=== PATIENT | male | born 1965 | race Caucasian/White ===

== ENCOUNTER 2021-05-04 15:06 | Outpatient (CLI) | payer OTHER, SELFPAY ==
--- NOTE | ~2021-05-04 | CT_ITS ---
EXAMINATION: CT abdomen pelvis w con DATE: 05/04/2021 15:58 INDICATION: Lower abdominal pain TECHNIQUE: Computed tomography (CT) of the abdomen and pelvis was performed with 100 cc Omnipaque 350 intravenous contrast. Automated exposure control and iterative reconstruction technique were employe d. Exam dose: 585.61 mGy-cm total exam DLP. COMPARISON: 06/02/2018 CT abdomen pelvis FINDINGS: There is minimal atelectasis at the lung bases. Normal heart size. No pericardial or pleura l effusion. 4.2 cm and 9 mm inferior right hepatic cysts. The gallbladder is unremarkable. No bile duct or pancreatic duct dilatation. No pancreatic mass lesio n or calcification. Normal splenic size. Normal morphology of the adrenal glands. There are multiple bilateral nonobstructing kidney stones, numbering approximately 6 or 7 on the righ t and 3 on the left, ranging from punctate size to approximately 5.8 mm maximal dimension.. No ureter al calculus or hydroureteronephrosis. There is prominent prostate enlargement, impressing the base of the urinary bladder. There is moderat e diffuse bladder wall thickening. Small fat-containing umbilical hernia. Mild colonic diverticulosis; no CT evidence of diverticulitis. No bowel obstruction or intraperitonea l free air. No abdominal aortic aneurysm. No intraperitoneal or retroperitoneal or pelvic mass lesion or adenopat hy or ascites. Hemangiomas of T10 and T12. No suspicious osteolytic or osteoblastic lesions. IMPRESSION: Right hepatic cysts Bilateral nonobstructive nephrolithiasis Prominent prostatomegaly Mild colonic diverticulosis Reviewed, dictated and finalized at [facility]. Reviewed, dictated and finalized at [facility]. ING TECH
[2021-05-04 15:50] LABS: Estimated Glomerular Filt Rate > 60
== END 2021-05-04 15:07 | disposition home or self-care (01) ==
LOC: ANHIMG 15:13
PROVIDERS: PCP Family Medicine; Visit Provider Physician Assistant
DX: R10.30 Lower abdominal pain, unspecified (principal); K57.90 Diverticulosis of intestine, part unspecified, without perforation or abscess without bleeding; K76.89 Other specified diseases of liver; N20.0 Calculus of kidney; N40.0 Benign prostatic hyperplasia without lower urinary tract symptoms
CPT/HCPCS: 74177; Q9967

== ENCOUNTER 2021-07-26 14:26 | Emergency (ER) | payer OTHER, SELFPAY ==
--- NOTE | ~2021-07-26 | CT_ITS ---
EXAMINATION: CT abdomen pelvis wo con DATE: 07/26/2021 18:25 INDICATION: Kidney stones. Hematuria. Groin pain. TECHNIQUE: Computed tomography (CT) of the abdomen and pelvis was performed without intravenous contr ast. Automated exposure control and iterative reconstruction technique were employed. The dose-length product was 245.61 mGy-cm. COMPARISON: CT abdomen and pelvis 05/04/2021 FINDINGS: The visualized portions of the lung bases demonstrate mild atelectasis. No pleural effusion . The heart size is normal. No pericardial effusion. There are cysts in the liver measuring up to 4.6 cm. The gallbladder, spleen, pancreas, and adrenal glands are normal. There are approximately 8 ston es in right kidney measuring up to 4 mm. There is mild right hydronephrosis and hydroureter. There is a 4 mm stone in distal right ureter. There is high attenuation in right ureter and the bladder, cons istent with hemorrhage. There are 3 stones in left kidney measuring up to 7 mm. The prostate is mildl y enlarged. There is diverticulosis of the colon without evidence of diverticulitis. There are no dil ated loops of bowel. The appendix is not visualized. There are no pathologically enlarged lymph nodes . There is no free intraperitoneal fluid. There are hemangiomas in T10 and T12 vertebral bodies. Ther e is severe lumbar spondylosis. IMPRESSION: 1. 4 mm stone in distal right ureter with mild right hydronephrosis and hydroureter and hematuria. 2. Bilateral nonobstructing kidney stones. Reviewed, dictated and finalized at [facility]. IMPRESSION: 1. 4 mm stone in distal right ureter with mild right hydronephrosis and hydrour eter and hematuria. 2. Bilateral nonobstructing kidney stones.
[2021-07-26 14:28] VITALS: BP 145/74; PULSE 72; RESP 18; TEMP 36.4; O2SAT 98
[2021-07-26 14:45] LABS: Basophils Absolute Auto 0.1 K/mm3 (0.0-0.1); Basophils Percent Auto 0.9 % (0.2-1.2); Eosinophils Absolute Auto 0.4 K/mm3 (0-0.3); Hematocrit 45.1 % (42.0-52.0); Hemoglobin 14.2 g/dL (14.0-18.0); Immature Granulocyte Absolute 0.03 K/mm3 (0.00-0.031); Immature Granulocyte Percent A 0.3 % (0-0.5); Lymphocytes Absolute Auto 1.92 K/mm3 (0.9-3.2); Lymphocytes Percent Auto 20.6 % (18.3-44.2); Mean Corpuscular HGB Conc 31.5 g/dl (32-36); Mean Corpuscular Hemoglobin 29.7 pg (26-34); Mean Corpuscular Volume 94.4 fl (80-100); Mean Platelet Volume 11.8 fl (7.4-10.4); Monocytes Absolute Auto 0.6 K/mm3 (0.1-0.6); Monocytes Percent Auto 6.4 % (2.6-8.5); Neutrophils Absolute Auto 6.3 K/mm3 (1.3-6.7); Neutrophils Percent Auto 67.8 % (45.5-73.1); Platelet Count Result 234 k/mm3 (150-375); Red Blood Count 4.78 M/mm3 (4.6-6.20); Red Cell Distribution Width 12.6 % (11.5-14.5); White Blood Count 9.3 K/mm3 (4.5-10.0)
[2021-07-26 14:58] LABS: Appearance Urine Clear (Clear); Bilirubin Urine Negative (Negative); Blood Urine 2+ (Negative); Color Urine Yellow (Yellow); Glucose Urine UA Negative (Negative); Ketones Urine Negative (Negative); Leukocyte Esterase Ur Negative LEU/UL (Negative); Nitrate Urine Negative (Negative); Protein Urine Negative (Negative); Specific Grav Ur 1.015 (1.001-1.035); Urobilinogen Urine 0.2 mg/dL (<2.0); pH Urine 6.5 (5.0-9.0)
[2021-07-26 15:02] LABS: Bacteria Urine Trace /hpf; RBC Urine 21-50 /hpf (0-2); WBC Urine 0-3 /hpf
[2021-07-26 15:04] LABS: Add Urine Microscopic? YES
[2021-07-26 15:48] LABS: Alanine Aminotransferase 18 U/L (4-50); Albumin Level 4.4 g/dL (3.5-5.1); Alkaline Phosphatase 65 U/L (38-126); Anion Gap 9 mmol/L (8-16); Aspartate Amino Transferase 27 U/L (17-59); Bilirubin,Total 0.6 mg/dL (0.2-1.3); Blood Urea Nitrogen 19 mg/dL (9-20); Calcium 8.7 mg/dL (8.4-10.2); Carbon Dioxide 26 mmol/L (22-30); Chloride 104 mmol/L (98-107); Estimated CRCL calculation 60 ml/min; Estimated Glomerular Filt Rate > 60; Glucose 153 mg/dL (65-110); Potassium 4.4 mmol/L (3.4-5.0); Sodium 139 mmol/L (137-145)
[2021-07-26 17:27] VITALS: BP 133/96; PULSE 71; RESP 18; O2SAT 98
--- NOTE | 2021-07-26 17:35 | ED.ABDPAIN ---
HPI - Abdominal Pain General Chief Complaint: Abdominal Pain Stated Complaint: right lower abd pain/hx stones Time Seen by Provider: 07/26/21 17:23 History of Present Illness HPI narrative: 55-year-old male with a history of kidney stones here for evaluation of right groin pain for the past 3 days. Patient states the pain is severe in nature, is colicky, and is very similar to previous kidney stone flare-ups. He has tried tramadol without much relief. Last flareup was several years ago , and was treated with shockwave lithotripsy. Patient was sent from [facility] [place], where he was getting a prostate MRI for prostatomegaly. Told to come to ED due to his pain and symptoms. Denies fevers, chills, back pain, dysuria, obstructive voiding symptoms. Related Data Allergies Allergy/AdvReac Type Severity Reaction Status Date / Time morphine AdvReac Unknown Verified 07/26/21 14:31 Review of Systems Review of Systems: Gen: Denies fevers or chills Eyes: Denies eye pain or visual change ENT: Denies congestion Respiratory: Denies shortness of breath or cough CV: Denies chest pain or palpitations GI: Denies abdominal pain nausea, emesis or diarrhea : Reports right groin pain and hematuria. Denies burning, urgency, frequency Musculoskeletal: Denies back pain or muscle pain Neuro: Denies numbness, tingling, weakness or focal weakness Skin: Denies rash Except as documented, all other systems reviewed and negative All systems reviewed & are unremarkable except as noted in HPI and below [facility] Surgical History Surgical History H/O vasectomy History of appendectomy Family History Family History Sibling Hypertension Social History Social History Smoking status: Never smoker Smoking end date: 03/24/83 Alcohol intake: current Exam Narrative: APPEARANCE: Uncomfortable appearing. Head: normocephalic and atraumatic. EYES: PERRLA/EOMI, conjunctivae clear NOSE: No nasal drainage EARS: External ear normal in appearance THROAT: Oropharynx is clear. Mucous membranes are moist. NECK: Supple. No adenopathy, no masses. RESPIRATORY: Airway patent, respirations nonlabored. Clear to auscultation bilaterally, no rales, rhonchi, wheezing. CARDIOVASCULAR: Regular rate and rhythm without murmurs, rubs, or gallops. ABDOMINAL: Normoactive bowel sounds. Soft, nontender, nondistended. No rebound tenderness or guarding. MUSCULOSKELETAL: Extremities are warm and well-perfused. Moves all extremities well. No edema. NEURO: Normal speech. No focal neurologic deficits. SKIN: Skin is warm and dry. No rashes. PSYCHIATRIC: Normal affect/mood. Course Vital Signs Vital signs: Vital Signs Temperature 97.6 F 07/26/21 14:28 Pulse Rate 72 07/26/21 14:28 Respiratory Rate 18 07/26/21 14:28 Blood Pressure 145/74 H 07/26/21 14:28 Pulse Oximetry 98 07/26/21 14:28 Temperature 97.6 F 07/26/21 14:28 Pulse Rate 68 07/26/21 18:57 Respiratory Rate 15 07/26/21 18:57 Blood Pressure 133/96 H 07/26/21 17:27 Pulse Oximetry 98 07/26/21 18:57 MDM - Abdominal Pain MDM Narrative Medical decision making narrative: 55-year-old male with a history of kidney stone here for intermittent right groin pain and hematuria for the past 3 days. Vital signs stable, labs unremarkable. CT with evidence of a 4 mm distal ureteral stone on the right. Spoke with [facility] [place], who agreed with plan for outpatient follow-up. Patient's pain is entirely resolved after Toradol, and feels okay to go home. He will strain his urine to look for the stone. Lab Data Result diagrams: 07/26/21 14:31 07/26/21 14:31 Labs: Lab Results 07/26/21 07/26/21 07/26/21 Range/Units 14:31 14:31 14:35 WBC 9.3 (4.5-10.0) K/mm3 RBC 4.78 (
[2021-07-26] MEDS: KETOROLAC 15 MG/ML VIAL (*BKC) IV PUSH (17:37)
[2021-07-26 18:57] VITALS: PULSE 68; RESP 15; O2SAT 98
== END 2021-07-26 19:09 | disposition home or self-care (01) ==
PROVIDERS: Emergency Medicine; Emergency Provider Emergency Medicine; PCP Family Medicine
DX: N13.2 Hydronephrosis with renal and ureteral calculous obstruction (principal); Z87.442 Personal history of urinary calculi
CPT/HCPCS: 36415; 74176; 80053; 81001; 85025; 96374; 99284; J1885

== ENCOUNTER 2022-02-02 11:50 | Emergency (ER) | payer OTHER, SELFPAY ==
[2022-02-02 12:06] VITALS: BP 118/73; PULSE 84; RESP 18; TEMP 36.6; O2SAT 98
--- NOTE | 2022-02-02 19:34 | ED.GENADULT ---
HPI - General Adult General Chief complaint: Upper Respiratory Infection Stated complaint: cough,congestion History of Present Illness HPI narrative: 56 y/o male. PMHx Asthma. Presents to [facility] today with acute complaints of cough, intermittent wheezing, and congestion for the past 1 week. He reports to have had a dry, non-productive cough, also causing his throat to become 'raw'. Intermittent wheezing, has been using home inhalers with some reliefs. He notes having to use his inhalers a bit more often in the past week 2/2 acute illness. -No fever. -Denies chest pain, palpitations, edema, hemoptysis. No known ill contacts. Related Data Home Medications Medication Instructions Recorded Confirmed mometasone 110 mcg/actuation(30 1 inh inhalation DIRECTED 02/02/22 02/02/22 doses) breath activated powder inhaler (Asmanex Twisthaler) Allergies Allergy/AdvReac Type Severity Reaction Status Date / Time morphine AdvReac Unknown Verified 02/02/22 12:21 Review of Systems Review of Systems: CONSTITUTIONAL: Denies fever, chills, sweats. EYES: Denies visual changes, redness, discharge. ENT: +rhinorrhea, congestion. 'Raw' throat. No otalgia. CARDIOVASCULAR: Denies chest pain, palpitations, edema. RESPIRATORY: Denies dyspnea. + wheezing & cough. GASTROINTESTINAL: Denies abdominal pain, nausea, vomiting, diarrhea. GENITOURINARY: Denies dysuria, hematuria, abnormal discharge SKIN: Denies rash or itching. MUSCULOSKELETAL: Denies acute back pain, joint pain, or myalgia. NEUROLOGIC: Denies numbness, or focal weakness. PSYCHIATRIC: Denies anxiety or depression. PMFSH Surgical History Surgical History H/O vasectomy History of appendectomy Family History Family History Sibling Hypertension Social History Social History Smoking status: Never smoker Smoking end date: 03/24/83 Alcohol intake: current Exam Narrative: GENERAL: This is a well-nourished, well-developed adult, in no apparent distress. HEAD: normocephalic. EYES: Sclera clear/white. EARS: External ears normal, auditory canals clear and without drainage, TMs normal. NOSE: External nose normal. Positive Rhinorrhea, no obstruction, nares patent. THROAT: Mucous membranes moist, posterior pharynx is erythematous, No exudates. NECK: Neck supple, non-tender without lymphadenopathy, masses or thyromegaly. CARDIOVASCULAR: Regular rate and rhythm without murmurs, gallops, or rubs. RESPIRATORY: Upper airway Rhonchi, cleared w/cough. Breath sounds equal bilaterally. No wheezes or rales. GASTROINTESTINAL: Abdomen soft, non-tender, nondistended. Bowel sounds are active. No guarding. SKIN: warm, intact with no suspicious lesions or rash, good texture and turgor. NEURO: Alert, active, and age appropriate. No focal neurologic deficits. EXTREMITIES: Negative. Course Course Level of Care: Express Care Visit Vital Signs Vital signs: Vital Signs Temperature 36.6 C 02/02/22 12:06 Pulse Rate 84 02/02/22 12:06 Respiratory Rate 18 02/02/22 12:06 Blood Pressure 118/73 02/02/22 12:06 Pulse Oximetry 98 02/02/22 12:06 Oxygen Delivery Room Air 02/02/22 12:06 Temperature 36.6 C 02/02/22 12:06 Pulse Rate 84 02/02/22 12:06 Respiratory Rate 18 02/02/22 12:06 Blood Pressure 118/73 02/02/22 12:06 Pulse Oximetry 98 02/02/22 12:06 Oxygen Delivery Room Air 02/02/22 12:06 Medical Decision Making [facility] Narrative Medical decision making narrative: -Suspect Intermittent, Mild, Asthma w/Exacerbation/URI. -No hypoxemia, no respiratory distress. -Appears generally non-toxic. -OP ATB/Steroid/Tessalon as directed. -Resume home antihistamine and inhalers as directed. -May resume additional OTC remedies prn for other symptomatic reliefs.
== END 2022-02-02 12:45 | disposition home or self-care (01) ==
PROVIDERS: Emergency Provider Nurse Practitioner Adult Health; PCP Family Medicine
DX: J06.9 Acute upper respiratory infection, unspecified (principal); J45.21 Mild intermittent asthma with (acute) exacerbation; Z98.52 Vasectomy status; Z87.891 Personal history of nicotine dependence
CPT/HCPCS: 99213; G0463

== ENCOUNTER 2022-10-12 13:57 | Emergency (ER) | payer OTHER, SELFPAY ==
[2022-10-12] VITALS (10 sets, daily range): BP systolic 134–154; BP diastolic 87–93; PULSE 82; RESP 16; TEMP 36.4; O2SAT 94–97
[2022-10-12] MEDS: IBUPROFEN 400 MG TABLET 800 MG PO (14:39)
--- NOTE | 2022-10-12 15:10 | PC.NURSE ---
ERP ordered for triple antibiotic, Xeroform dressing, and to wrap open blisters to pt's right arm and lower leg. RN performs actions. PMS is present distal to the wrappings. Educated pt wound care at home.
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
== END 2022-10-12 15:31 | disposition home or self-care (01) ==
PROVIDERS: Emergency Provider Nurse Practitioner Family; PCP Family Medicine
DX: T22.211A Burn of second degree of right forearm, initial encounter (principal); T24.201A Burn of second degree of unspecified site of right lower limb, except ankle and foot, initial encounter; T31.0 Burns involving less than 10% of body surface; X08.8XXA Exposure to other specified smoke, fire and flames, initial encounter
CPT/HCPCS: 99283; A9270

== ENCOUNTER 2023-04-29 10:41 | Outpatient (CLI) | payer OTHER, SELFPAY ==
[2023-04-29 11:00] LABS: Basophils Absolute Auto 0.1 K/mm3 (0.0-0.1); Basophils Percent Auto 0.6 % (0.2-1.2); Eosinophils Absolute Auto 0.2 K/mm3 (0-0.3); Eosinophils Percent Auto 2.5 % (0-4.4); Hematocrit 34.8 % (42.0-52.0); Hemoglobin 10.8 g/dL (14.0-18.0); Immature Granulocyte Absolute 0.03 K/mm3 (0.00-0.031); Immature Granulocyte Percent A 0.4 % (0-0.5); Lymphocytes Absolute Auto 2.87 K/mm3 (0.9-3.2); Lymphocytes Percent Auto 35.7 % (18.3-44.2); Mean Corpuscular Hemoglobin 28.3 pg (26-34); Mean Corpuscular Volume 91.3 fl (80-100); Mean Platelet Volume 11.4 fl (7.4-10.4); Monocytes Absolute Auto 0.5 K/mm3 (0.1-0.6); Monocytes Percent Auto 6.5 % (2.6-8.5); Neutrophils Absolute Auto 4.4 K/mm3 (1.3-6.7); Neutrophils Percent Auto 54.3 % (45.5-73.1); Platelet Count Result 308 k/mm3 (150-375); Red Blood Count 3.81 M/mm3 (4.6-6.20)
[2023-04-29 11:15] LABS: Alanine Aminotransferase 20 U/L (6-50); Albumin Level 4.2 g/dL (3.5-5.1); Alkaline Phosphatase 69 U/L (38-126); Anion Gap 5 mmol/L (8-16); Aspartate Amino Transferase 32 U/L (17-59); Bilirubin,Total 0.6 mg/dL (0.2-1.3); Blood Urea Nitrogen 18 mg/dL (9-20); Calcium 9.3 mg/dL (8.4-10.2); Carbon Dioxide 30 mmol/L (22-30); Chloride 102 mmol/L (98-107); Estimated Glomerular Filt Rate > 60; Glucose 107 mg/dL (65-110); Sodium 137 mmol/L (137-145)
== END 2023-04-29 10:42 | disposition home or self-care (01) ==
LOC: ANHLAB 10:43
PROVIDERS: PCP Family Medicine; Visit Provider Family Medicine
DX: R55 Syncope and collapse (principal)
CPT/HCPCS: 36415; 80053; 85025

== ENCOUNTER 2023-05-02 08:05 | Outpatient (CLI) | payer OTHER, SELFPAY ==
[2023-05-02 08:23] LABS: Basophils Absolute Auto 0.1 K/mm3 (0.0-0.1); Eosinophils Absolute Auto 0.4 K/mm3 (0-0.3); Eosinophils Percent Auto 6.5 % (0-4.4); Hematocrit 31.6 % (42.0-52.0); Immature Granulocyte Absolute 0.03 K/mm3 (0.00-0.031); Immature Granulocyte Percent A 0.5 % (0-0.5); Lymphocytes Percent Auto 40.1 % (18.3-44.2); Mean Corpuscular HGB Conc 31.6 g/dl (32-36); Mean Corpuscular Hemoglobin 28.7 pg (26-34); Mean Corpuscular Volume 90.8 fl (80-100); Mean Platelet Volume 10.8 fl (7.4-10.4); Monocytes Absolute Auto 0.4 K/mm3 (0.1-0.6); Monocytes Percent Auto 6.5 % (2.6-8.5); Neutrophils Absolute Auto 2.7 K/mm3 (1.3-6.7); Neutrophils Percent Auto 45.4 % (45.5-73.1); Platelet Count Result 308 k/mm3 (150-375); Red Blood Count 3.48 M/mm3 (4.6-6.20)
[2023-05-02 08:53] LABS: Alanine Aminotransferase 17 U/L (6-50); Albumin Level 3.9 g/dL (3.5-5.1); Alkaline Phosphatase 66 U/L (38-126); Anion Gap 7 mmol/L (8-16); Aspartate Amino Transferase 27 U/L (17-59); Bilirubin,Total 0.6 mg/dL (0.2-1.3); Blood Urea Nitrogen 19 mg/dL (9-20); Calcium 8.7 mg/dL (8.4-10.2); Carbon Dioxide 27 mmol/L (22-30); Chloride 104 mmol/L (98-107); Cholesterol 192 mg/dL (0-200); Estimated Glomerular Filt Rate > 60; Glucose 98 mg/dL (65-110); HDL Direct 54 mg/dL; Potassium 4.1 mmol/L (3.4-5.0); Sodium 138 mmol/L (137-145); Triglycerides 82 mg/dL (<150)
[2023-05-02 08:58] LABS: Iron 27 ug/dL (49-181)
[2023-05-02 09:04] LABS: LDL Cholesterol Direct 108 mg/dL
[2023-05-02 09:08] LABS: Percent Iron Saturation 6 % (20-50)
[2023-05-02 09:19] LABS: Prostate Specific Antigen 8.3 ng/mL (< OR = 4.0)
[2023-05-02 09:35] LABS: Ferritin 9.39 ng/mL (11.1-264)
== END 2023-05-02 08:06 | disposition home or self-care (01) ==
LOC: ANHLAB 08:06
PROVIDERS: Physician Assistant; PCP Family Medicine; Visit Provider Family Medicine
DX: D64.9 Anemia, unspecified (principal); N40.0 Benign prostatic hyperplasia without lower urinary tract symptoms; Z00.00 Encounter for general adult medical examination without abnormal findings; I10 Essential (primary) hypertension
CPT/HCPCS: 36415; 80053; 80061; 82728; 83540; 83550; 84153; 84443; 85025

== ENCOUNTER 2023-05-27 07:18 | Outpatient (CLI) | payer OTHER, SELFPAY ==
[2023-05-27 08:30] LABS: Prostate Specific Antigen 8.2 ng/mL (< OR = 4.0)
== END 2023-05-27 07:19 | disposition home or self-care (01) ==
LOC: ANHLAB 07:20
PROVIDERS: PCP Family Medicine; Visit Provider Urology
DX: R97.20 Elevated prostate specific antigen [PSA] (principal)
CPT/HCPCS: 36415; 84153

== ENCOUNTER 2023-05-28 00:11 | Day surgery (SDC) | payer OTHER, SELFPAY ==
[2023-05-12 13:40] VITALS: BMI 28.1
--- NOTE | 2023-05-26 10:08 | SUR.PREOP ---
Patient called regarding upcoming procedure. Reviewed preop instructions, appointment times, and procedure prep.
[2023-05-28 12:59] VITALS: BP 156/93; PULSE 73; RESP 18; TEMP 36.2; O2SAT 98
[2023-05-28] MEDS: LACTATED RINGERS 1,000 ML 150 ML IV CONT (13:01)
--- NOTE | 2023-05-28 13:18 | P.PNAN_ITS ---
Anes - Initial Pre Proc Eval Procedure: Operation Date: 05/28/23 14:00 Proposed Procedures p Esophagogastroduodenoscopy & Colonoscopy - Michoacano Prescott MD Date/Time: 05/28/23 13:18 Surgeon: Michoacano Prescott MD Pre Op Diagnosis: anemia Patient Data Age: 57 Gender: M Height: 1.73 m Weight: 80 kg Last Vital Signs Temp 97.2 F L 05/28/23 12:59 Pulse 73 05/28/23 12:59 Resp 18 05/28/23 12:59 BP 156/93 H 05/28/23 12:59 Pulse Ox 98 05/28/23 12:59 O2 Del Method Room Air 05/28/23 12:59 Allergies Allergy/AdvReac Type Severity Reaction Status Date / Time morphine AdvReac Unknown Verified 05/28/23 12:58 Home Medications Medication Instructions Recorded Confirmed Type albuterol sulfate 90 mcg/actuation 1 inh inhalation Q4H PRN shortness 07/16/22 05/28/23 Rx aerosol inhaler of breath or wheezing #6.7 grams ibuprofen 800 mg tablet 800 mg PO Q8H PRN pain #90 tabs 10/12/22 05/28/23 Rx fluticasone 250 mcg-salmeterol 50 See Rx Instructions .Route 10/28/22 05/28/23 Rx mcg/dose blistr powdr for .COMPLEX #180 ea inhalation lisinopril 10 mg tablet 10 mg PO DAILY #90 tabs 11/26/22 05/28/23 Rx Patient hx anesthesia problems: none Family hx anesthesia problems: none Results Review: All pre-operative results and documents have been reviewed as part of the pre- operative evaluation. [facility] Surgical History Surgical History H/O vasectomy History of appendectomy Family History Family History Sibling Hypertension Social History Social History Smoking status: Former smoker Tobacco type: cigarettes Smoking end date: 03/24/83 Additional smoking assessment comments: 2cigs per week Alcohol intake: current Drinks per week: 1 Substance use: never Living arrangements: with family Occupation/Education: occupation Gender identity (if verbalized by the patient): Male Spiritual care concerns: No Anes - Eval Final PreProcedure Day of Procedure 05/28/23 13:18 Patient weight: normal Heart: regular rate and rhythm Lungs: clear to auscultation Airway: Mallampati scale class II Neurological: alert and oriented Last oral intake: >/= 8 hours ASA classification: II Emergent: no Anesthetic plan: proceed Anesthesia type and monitoring: general GIVS and standard monitoring Results Review: All pre-operative results and documents have been reviewed as part of the pre- operative evaluation. Informed Consent: The patient's anesthetic plan and its attendant risks and benefits were discussed with the patient/family/POA. Questions were solicited and answers provided to the satisfaction of the patient/family/POA.
--- NOTE | 2023-05-28 13:34 | PM.HPGS ---
History of Present Illness History of Present Illness Consent: Risks, benefits, and alternatives have been discussed and questions answered. Patient agrees to proceed with procedure. Chief complaint: anemia Narrative: Al Powell is a 57 year old male here for egd and colonoscopy, had anemia hgb ~ 10 but denies overt gib however about 2 months ago had episode of black stool, he is not taking ppi. He uses nsaid's as needed. Review of Systems Constitutional: Constitutional: Denies headache(s) and Denies weakness Eyes: Eyes: Denies blurry vision ENT: Reports Normal hearing present, Denies headache(s) and Denies neck pain Cardiovascular: Cardiovascular: Denies chest pain and Denies dyspnea Respiratory: Respiratory: Denies dyspnea Gastrointestinal: Gastrointestinal: Reports no additional gastrointestinal complaints Genitourinary: Genitourinary: Denies dysuria Musculoskeletal: Musculoskeletal: Denies neck pain Integumentary/Breasts: Skin/Breast: Denies dry skin Neurologic: Reports Normal hearing present, Denies headache(s) and Denies weakness Psychiatric: Psychiatric: Denies anxiety Endocrine: Endocrine: Denies change in body appearance Hematologic/Lymphatic: Hematologic/Lymphatic: Denies easy bleeding Allergic/Immunologic: Allergic/Immunologic: Denies urticaria PMFSH Past Medical History Medical History (Updated 05/28/23 @ 13:35 by Michoacano Prescott MD) Anemia Surgical History Surgical History H/O vasectomy History of appendectomy Family History Family History Sibling Hypertension Social History Social History Smoking status: Former smoker Tobacco type: cigarettes Smoking end date: 03/24/83 Additional smoking assessment comments: 2cigs per week Alcohol intake: current Drinks per week: 1 Substance use: never Living arrangements: with family Occupation/Education: occupation Gender identity (if verbalized by the patient): Male Spiritual care concerns: No Meds Home Medications and Allergies Home Medications Medication Instructions Recorded Confirmed Type albuterol sulfate 90 mcg/actuation 1 inh inhalation Q4H PRN shortness 07/16/22 05/28/23 Rx aerosol inhaler of breath or wheezing #6.7 grams ibuprofen 800 mg tablet 800 mg PO Q8H PRN pain #90 tabs 10/12/22 05/28/23 Rx fluticasone 250 mcg-salmeterol 50 See Rx Instructions .Route 10/28/22 05/28/23 Rx mcg/dose blistr powdr for .COMPLEX #180 ea inhalation lisinopril 10 mg tablet 10 mg PO DAILY #90 tabs 11/26/22 05/28/23 Rx Allergies Allergy/AdvReac Type Severity Reaction Status Date / Time morphine AdvReac Unknown Verified 05/28/23 12:58 Vital Signs Vital Signs - 24 hr 05/28/23 12:59 Temperature 97.2 F L Pulse Rate 73 Respiratory Rate 18 Blood Pressure 156/93 H Pulse Oximetry 98 Oxygen Delivery Room Air Exam Const: General: comfortable and no acute distress HENMT: Face/Nose/Sinus: Normal nares present Eyes: General: appearance normal, both eyes and all related structures Neck: Neck: no JVD Resp: Auscultation: clear to auscultation bilaterally Cardio: Rate: regular rate Rhythm: regular rhythm GI: Inspection: non-distended GI Palp: Yes Soft to palpation Skin: General skin exam: normal color Neuro: General: gait normal Speech: normal speech Extrem: General: normal to inspection Psych: Mental Status: mental status grossly normal Assessment and Plan Assessment and plan (1) Anemia: Code(s): D64.9 - Anemia, unspecified Status: Acute Assessment and Plan: egd and colonoscopy
--- NOTE | 2023-05-28 13:48 | SUR.OPER ---
egd ended at 1346 and colon at 1351
[2023-05-28 14:00] VITALS: BP 118/73; PULSE 63; RESP 18; O2SAT 98
== END 2023-05-28 14:45 | disposition home or self-care (01) ==
PROVIDERS: PCP Family Medicine; Visit Provider Internal Medicine Gastroenterology
PROC: 0DJ08ZZ Inspection of Upper Intestinal Tract, Via Natural or Artificial Opening Endoscopic (ICD-10-PCS; CPT 43235; principal; 2023-05-28 14:00)
DX: K25.9 Gastric ulcer, unspecified as acute or chronic, without hemorrhage or perforation (principal); K29.50 Unspecified chronic gastritis without bleeding; B96.81 Helicobacter pylori [H. pylori] as the cause of diseases classified elsewhere; D64.9 Anemia, unspecified; K57.30 Diverticulosis of large intestine without perforation or abscess without bleeding; K64.8 Other hemorrhoids; Z87.891 Personal history of nicotine dependence; Z79.51 Long term (current) use of inhaled steroids
CPT/HCPCS: 45378; 43239; 88305; 88342; J2001; J2704; J7120

== ENCOUNTER 2023-08-27 16:50 | Outpatient (CLI) | payer OTHER, SELFPAY ==
[2023-08-27 18:00] LABS: Hematocrit 35.7 % (42.0-52.0); Hemoglobin 10.3 g/dL (14.0-18.0); Mean Corpuscular HGB Conc 28.9 g/dl (32-36); Mean Corpuscular Hemoglobin 22.3 pg (26-34); Mean Corpuscular Volume 77.3 fl (80-100); Mean Platelet Volume 11.4 fl (7.4-10.4); Platelet Count Result 304 k/mm3 (150-375); Red Blood Count 4.62 M/mm3 (4.6-6.20); Red Cell Distribution Width 19.9 % (11.5-14.5)
[2023-08-27 18:14] LABS: Alanine Aminotransferase 25 U/L (6-50); Albumin Level 4.6 g/dL (3.5-5.1); Alkaline Phosphatase 65 U/L (38-126); Anion Gap 7 mmol/L (4-12); Aspartate Amino Transferase 29 U/L (17-59); Bilirubin,Total 0.7 mg/dL (0.2-1.3); Blood Urea Nitrogen 23 mg/dL (9-20); Carbon Dioxide 24 mmol/L (22-30); Chloride 107 mmol/L (98-107); Estimated Glomerular Filt Rate > 60; Glucose 96 mg/dL (65-110); Potassium 3.9 mmol/L (3.4-5.0); Sodium 138 mmol/L (137-145)
== END 2023-08-27 16:51 | disposition home or self-care (01) ==
LOC: ANHIMG 16:51
PROVIDERS: PCP Family Medicine; Visit Provider Physician Assistant Medical
DX: K29.70 Gastritis, unspecified, without bleeding (principal); I10 Essential (primary) hypertension; D64.9 Anemia, unspecified; B96.81 Helicobacter pylori [H. pylori] as the cause of diseases classified elsewhere; M25.562 Pain in left knee; M25.561 Pain in right knee
CPT/HCPCS: 36415; 73562; 80053; 85027

== ENCOUNTER 2023-09-26 00:07 | Day surgery (SDC) | payer OTHER, SELFPAY ==
[2023-09-10 14:09] VITALS: BMI 27.4
[2023-09-26 08:06] VITALS: BP 141/85; PULSE 71; RESP 17; TEMP 36.3; O2SAT 96; BMI 29.0
--- NOTE | 2023-09-26 08:12 | WPDANESEPPF ---
Anes - Initial Pre Proc Eval Procedure: Operation Date: 09/26/23 09:30 Proposed Procedures p Esophagogastroduodenoscopy - Michoacano Prescott MD Date/Time: 09/26/23 08:12 Surgeon: Michoacano Prescott MD Pre Op Diagnosis: gastric ulcer Patient Data Age: 57 Gender: M Height: 1.73 m Weight: 86.7 kg Last Vital Signs Temp 97.3 F L 09/26/23 08:06 Pulse 71 09/26/23 08:06 Resp 17 09/26/23 08:06 BP 141/85 H 09/26/23 08:06 Pulse Ox 96 09/26/23 08:06 O2 Del Method Room Air 09/26/23 08:06 Allergies Allergy/AdvReac Type Severity Reaction Status Date / Time morphine AdvReac Unknown Verified 09/26/23 08:04 Home Medications Medication Instructions Recorded Confirmed Type albuterol sulfate 90 mcg/actuation 1 inh inhalation Q4H PRN shortness 07/16/22 09/26/23 Rx aerosol inhaler of breath or wheezing #6.7 grams omeprazole 40 mg capsule,delayed 40 mg PO .daily #30 caps 05/28/23 09/26/23 Rx release lisinopril 10 mg tablet 10 mg PO DAILY #90 tabs 07/09/23 09/26/23 Rx fluticasone 250 mcg-salmeterol 50 See Rx Instructions .Route .COMPLEX 09/10/23 09/26/23 History mcg/dose blistr powdr for inhalation (Advair Diskus) Patient hx anesthesia problems: none Family hx anesthesia problems: none Results Review: All pre-operative results and documents have been reviewed as part of the pre-operative evaluation. [facility] Past Medical History Medical History Anemia Helicobacter positive gastritis Surgical History Surgical History H/O vasectomy History of appendectomy Family History Family History Sibling Hypertension Social History Social History Smoking status: Former smoker Tobacco type: cigarettes Smoking end date: 03/24/83 Additional smoking assessment comments: 2cigs per week Alcohol intake: current Drinks per week: 1 Substance use: never Living arrangements: with family Occupation/Education: occupation Gender identity (if verbalized by the patient): Male Spiritual care concerns: No Anes - Eval Final PreProcedure Day of Procedure 09/26/23 08:12 Patient weight: normal Heart: regular rate and rhythm Lungs: clear to auscultation Airway: Mallampati scale class II Neurological: alert and oriented Last oral intake: >/= 8 hours ASA classification: II Emergent: no Anesthetic plan: proceed Anesthesia type and monitoring: general GIVS and standard monitoring Results Review: All pre-operative results and documents have been reviewed as part of the pre-operative evaluation. Informed Consent: The patient's anesthetic plan and its attendant risks and benefits were discussed with the patient/family/POA. Questions were solicited and answers provided to the satisfaction of the patient/family/POA.
[2023-09-26] MEDS: LACTATED RINGERS 1,000 ML 150 ML IV CONT (08:13)
--- NOTE | 2023-09-26 08:57 | PM.HPGS ---
History of Present Illness History of Present Illness Consent: Risks, benefits, and alternatives have been discussed and questions answered. Patient agrees to proceed with procedure. Chief complaint: gastric ulcer Narrative: Al Powell is a 57 year old male with gastric ulcer after had anemia, now asymptomatic after using ppi and not longer using nsaid's Review of Systems Review of Systems: All systems reviewed & are unremarkable except as noted in HPI and below PMFSH Past Medical History Medical History Anemia Helicobacter positive gastritis Surgical History Surgical History H/O vasectomy History of appendectomy Family History Family History Sibling Hypertension Social History Social History Smoking status: Former smoker Tobacco type: cigarettes Smoking end date: 03/24/83 Additional smoking assessment comments: 2cigs per week Alcohol intake: current Drinks per week: 1 Substance use: never Living arrangements: with family Occupation/Education: occupation Gender identity (if verbalized by the patient): Male Spiritual care concerns: No Meds Home Medications and Allergies Home Medications Medication Instructions Recorded Confirmed Type albuterol sulfate 90 mcg/actuation 1 inh inhalation Q4H PRN shortness 07/16/22 09/26/23 Rx aerosol inhaler of breath or wheezing #6.7 grams omeprazole 40 mg capsule,delayed 40 mg PO .daily #30 caps 05/28/23 09/26/23 Rx release lisinopril 10 mg tablet 10 mg PO DAILY #90 tabs 07/09/23 09/26/23 Rx fluticasone 250 mcg-salmeterol 50 See Rx Instructions .Route .COMPLEX 09/10/23 09/26/23 History mcg/dose blistr powdr for inhalation (Advair Diskus) Allergies Allergy/AdvReac Type Severity Reaction Status Date / Time morphine AdvReac Unknown Verified 09/26/23 08:04 Vital Signs Vital Signs - 24 hr 09/26/23 08:06 Temperature 97.3 F L Pulse Rate 71 Respiratory Rate 17 Blood Pressure 141/85 H Pulse Oximetry 96 Oxygen Delivery Room Air Exam Const: General: comfortable and no acute distress HENMT: Face/Nose/Sinus: Normal nares present Eyes: General: appearance normal, both eyes and all related structures Neck: Neck: no JVD Resp: Auscultation: clear to auscultation bilaterally Cardio: Rate: regular rate Rhythm: regular rhythm GI: Inspection: non-distended GI Palp: Yes Soft to palpation Skin: General skin exam: normal color Neuro: General: gait normal Speech: normal speech Extrem: General: normal to inspection Psych: Mental Status: mental status grossly normal Assessment and Plan Assessment and plan (1) Helicobacter positive gastritis: Code(s): K29.70 - Gastritis, unspecified, without bleeding; B96.81 - Helicobacter pylori [H. pylori] as the cause of diseases classified elsewhere Status: Acute Assessment and Plan: egd to assess healing
[2023-09-26 09:05] VITALS: BP 120/68; PULSE 62; RESP 22; O2SAT 98
[2023-09-26 09:15] VITALS: BP 116/69; PULSE 63; RESP 21; O2SAT 98
[2023-09-26 09:25] VITALS: BP 133/70; PULSE 60; RESP 21; O2SAT 98
== END 2023-09-26 09:35 | disposition home or self-care (01) ==
PROVIDERS: PCP Family Medicine; Visit Provider Internal Medicine Gastroenterology
PROC: 0DJ08ZZ Inspection of Upper Intestinal Tract, Via Natural or Artificial Opening Endoscopic (ICD-10-PCS; CPT 43235; principal; 2023-09-26 09:30)
DX: K25.9 Gastric ulcer, unspecified as acute or chronic, without hemorrhage or perforation (principal); K29.50 Unspecified chronic gastritis without bleeding; K44.9 Diaphragmatic hernia without obstruction or gangrene; B96.81 Helicobacter pylori [H. pylori] as the cause of diseases classified elsewhere; Z87.891 Personal history of nicotine dependence
CPT/HCPCS: 43239; 88305; 88342; J2704; J7120

== ENCOUNTER 2024-01-11 12:26 | Outpatient (CLI) | payer OTHER, SELFPAY ==
--- NOTE | ~2024-01-11 | MR_ITS ---
MRI of the right knee Clinical history: Pain Technique: Coronal proton density and proton density-weighted images, sagittal proton-density and T2 fat-sat images, and axial proton-density fat-saturated images were acquired. Findings: Anterior and posterior cruciate ligaments are intact. Medial collateral ligament and the la teral collateral ligament complex are intact. Popliteus tendon is intact. Medial and lateral menisci are intact, without evidence of tear. 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 Remaining articular cartilag e is well-preserved. Bone marrow signals are intact. Extensor mechanism is intact. No significant joint effusion or Ashby's cyst. 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 No other significant findings. Reviewed, dictated and finalized at [facility]. 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 No other significant findings.
--- NOTE | ~2024-01-11 | MR_ITS ---
MRI of the left knee Clinical history: Pain Technique: Coronal proton density and proton density-weighted images, sagittal proton-density and T2 fat-sat images, and axial proton-density fat-saturated images were acquired. Findings: Anterior and posterior cruciate ligaments are intact. Medial collateral ligament and the la teral collateral ligament complex are intact. Popliteus tendon is intact. There is oblique flap tear of the posterior horn of the medial meniscus. No definite lateral meniscal tear seen. There is probable intrasubstance degenerative signal of the posterior horn. Articular cartilage is well preserved throughout the knee. Bone marrow signals are intact. Extensor mechanism is intact. No joint effusion or Ashby's cyst. Possible mild edema of the quadricep s fat pad. Impression: Oblique flap tear of the posterior horn of the medial meniscus. Possible mild impingement of the quadriceps fat pad. Reviewed, dictated and finalized at [facility]. Impression: Oblique flap tear of the posterior horn of the medial meniscus. Possible mild impingement of the quadriceps fat pad.
== END 2024-01-11 12:27 | disposition home or self-care (01) ==
PROVIDERS: PCP Family Medicine; Visit Provider Physician Assistant Medical
DX: R26.2 Difficulty in walking, not elsewhere classified (principal); Z91.81 History of falling; S83.242A Other tear of medial meniscus, current injury, left knee, initial encounter; X58.XXXA Exposure to other specified factors, initial encounter; M25.561 Pain in right knee
CPT/HCPCS: 73721

== ENCOUNTER 2024-02-21 14:12 | Emergency (ER) | payer OTHER, SELFPAY ==
--- NOTE | ~2024-02-21 | CT_ITS ---
EXAMINATION: CT abdomen pelvis wo con DATE: 02/21/2024 17:29 INDICATION: left flank pain TECHNIQUE: Computed tomography (CT) of the abdomen and pelvis was performed without intravenous contr ast. Automated exposure control and iterative reconstruction technique were employed. The dose-length product was 284.68 mGy-cm. COMPARISON: 07/26/2021. FINDINGS: Lower thorax: Unremarkable Liver: Right lobe peripheral cyst, considerably smaller than in the prior examination. Biliary/Gallbladder: Gallbladder is normal. No bile duct dilation. Pancreas: No mass or duct dilation. Spleen: Normal. Adrenals:No mass. Kidneys: No suspicious mass, obstructing stone, or hydronephrosis. Multiple bilateral nonobstructing calculi GI tract: No small or large bowel dilation. Appendix not confidently visualized. Diverticulosis witho ut diverticulitis. Mesentery/Peritoneum: No ascites, mass, or free air. Retroperitoneum: No mass. Pelvis: Partially distended urinary bladder. Hepatomegaly. Soft Tissues: Soft tissues and body wall unremarkable. Bones: No acute osseous finding. Vertebral body hemangiomas at T10 and T12. IMPRESSION: No acute abdominopelvic process detected. Reviewed, dictated and finalized at [facility]
[2024-02-21 14:15] VITALS: BP 151/84; PULSE 79; RESP 14; TEMP 36.3; O2SAT 98
[2024-02-21 15:47] LABS: Add Urine Microscopic? YES; Appearance Urine Clear (Clear); Bacteria Urine None Seen /hpf; Bilirubin Urine Negative (Negative); Blood Urine 1+ (Negative); Color Urine Yellow (Yellow); Glucose Urine UA Negative (Negative); Ketones Urine Negative (Negative); Leukocyte Esterase Ur Negative LEU/UL (Negative); Nitrate Urine Negative (Negative); Non Pathogenic Casts 0-2; Protein Urine Negative (Negative); Specific Grav Ur 1.019 (1.001-1.035); Squamous Epithelial Cell Urine None Seen /hpf (Few); Urobilinogen Urine 0.2 mg/dL (<2.0); WBC Urine 0-5 /hpf (0-3); pH Urine 5.5 (5.0-9.0)
--- NOTE | 2024-02-21 16:07 | ED_ITS ---
HPI - Back Pain/Injury General Chief Complaint: Back Pain/Injury Stated Complaint: lower back pain Time Seen by Provider: 02/21/24 15:49 History of Present Illness HPI Narrative: 58-year-old male with history of asthma, hypertension, kidney stones presents to the emergency department for flank pain for the past few days. Patient states the pain is located in his left flank and is now radiating into his left upper quadrant of his abdomen. He describes the pain is a knot and muscle spasm. States the pain is better when he lays flat and worse when he stands. States he has been taking muscle relaxers without improvement. He denies dysuria, hematuria, lower abdominal pain, fever, vomiting. States he felt nauseous earlier secondary to the pain. His urologist are Dr. Arguello and Dr. Cason. Related Data Home Medications Medication Instructions Recorded Confirmed fluticasone 250 mcg-salmeterol 50 See Rx Instructions .Route .COMPLEX 09/10/23 02/13/24 mcg/dose blistr powdr for inhalation (Advair Diskus) Allergies Allergy/AdvReac Type Severity Reaction Status Date / Time morphine AdvReac Unknown Verified 02/21/24 14:17 Review of Systems Review of Systems: All systems reviewed & are unremarkable except as noted in HPI and below PMFSH Past Medical History Medical History Anemia Helicobacter positive gastritis Surgical History Surgical History H/O vasectomy History of appendectomy Family History Family History Sibling Hypertension Social History Social History Smoking status: Former smoker Tobacco type: cigarettes Smoking end date: 03/24/83 Additional smoking assessment comments: 2cigs per week Alcohol intake: current Drinks per week: 1 Substance use: never Living arrangements: with family Occupation/Education: occupation Gender identity (if verbalized by the patient): Male Spiritual care concerns: No Exam Narrative: GENERAL: Well-appearing, well-nourished, and in no acute distress. HEAD: Normocephalic, atraumatic. EYES: EOMI. ENT: Nares clear, no rhinorrhea or epistaxis. Mucous membranes moist. NECK: Supple. CHEST: Clear to auscultation. No respiratory distress. HEART: Regular rate and rhythm. No murmur heard. Normal peripheral pulses. ABDOMEN: Soft, nontender, nondistended, normal active bowel sounds. No rebound, guarding or rigidity. Tenderness to the left flank on palpation. No overlying skin changes, rashes EXTREMITIES: Normal range of motion. No edema. SKIN: Warm, dry, no rash. NEURO: No focal deficits. Alert and oriented x3 Course Vital Signs Vital signs: Vital Signs Temperature 97.4 F L 02/21/24 14:15 Pulse Rate 79 02/21/24 14:15 Respiratory Rate 14 02/21/24 14:15 Blood Pressure 151/84 H 02/21/24 14:15 Pulse Oximetry 98 02/21/24 14:15 Oxygen Delivery Room Air 02/21/24 14:15 Temperature 97.4 F L 02/21/24 14:15 Pulse Rate 80 02/21/24 16:21 Respiratory Rate 18 02/21/24 16:21 Blood Pressure 162/104 H 02/21/24 16:21 Pulse Oximetry 97 02/21/24 16:21 Oxygen Delivery Room Air 02/21/24 14:15 MDM - Back Pain/Injury MDM Narrative Medical decision making narrative: 58-year-old male with a history of kidney stones presents emergency department for left flank pain for the past few days. Vitals with elevated blood pressure, otherwise unremarkable. He is afebrile nontoxic appearing. Exam significant for the above. Urinalysis obtained which by nursing staff which shows 6-10 rbc's, no wbc's. Given history of kidney stones will obtain lab work and CT abdomen pelvis without contrast. Lab work shows no leukocytosis, stable hemoglobin of 12.6. Chemistries are unremarkable. Lipase is normal. CT abdomen pelvis shows no acute intra abdominal or pelvic findings. Patient and were updated on workup. He received p.o. [place] with improvement. Suspect pain is MSK in etiology. Will provide Tylenol, Flexeril and lidocaine patches. Will refrain from NSAIDs given recent history of gastric ulcer. Advised follow-up with PCP and discuss strict ED return precautions. Also advised follow-up with Urology given hematuria. He is agreeable to plan and verbalized understanding. Discharged in stable condition. Lab Data 02/21/24 17:00 02/21/24 17:00 Labs: Lab Results 02/21/24 02/21/24 Range/Units 15:35 17:00 WBC 7.7 (4.5-10.0) K/mm3 RBC 4.89 (4.6-6.20) M/mm3 Hgb 12.6 L (14.0-18.0) g/dL Hct 40.1 L (42.0-52.0) % MCV 82.0 (80-100) fl MCH 25.8 L (26-34) pg MCHC 31.4 L (32-36) g/dl RDW 16.7 H (11.5-14.5) % Plt Count 234 (150-375) k/mm3 MPV 11.2 H (7.4-10.4) fl Immature Gran % (Auto) 0.3 (0-0.5) % Neut % (Auto) 54.6 (45.5-73.1) % Lymph % (Auto) 34.3 (18.3-44.2) % [place] % (Auto) 7.8 (2.6-8.5) % Eos % (Auto) 2.5 (0-4.4) % Baso % (Auto) 0.5 (0.2-1.2) % Lymph # (Auto) 2.63 (0.9-3.2) K/mm3 [place] # (Auto) 0.6 (0.1-0.6) K/mm3 Eos # (Auto) 0.2 (0-0.3) K/mm3 Baso # (Auto) 0.0 (0.0-0.1) K/mm3 Abs Immat Gran (auto) 0.02 (0.00-0.031) K/mm3 Absolute Neuts (auto) 4.2 (1.3-6.7) K/mm3 Absolute Nucleated RBC 0.000 (0.0-0.012) K/mm3 Nucleated RBC % 0.0 (0.0-0.2) % Sodium 138 (137-145) mmol/L Potassium 3.8 (3.4-5.0) mmol/L Chloride 104 (98-107) mmol/L Carbon Dioxide 27 (22-30) mmol/L Anion Gap 7 (4-12) mmol/L BUN 16 (9-20) mg/dL Creatinine 1.00 (0.7-1.3) mg/dL Estim Creat Clear Calc 77 ml/min Estimated GFR > 60 (59 - ) Glucose 93 (65-110) mg/dL Calcium 8.8 (8.4-10.2) mg/dL Total Bilirubin 0.8 (0.2-1.3) mg/dL AST 32 (17-59) U/L ALT 20 (6-50) U/L Alkaline Phosphatase 76 (38-126) U/L Total Protein 8.0 (6.3-8.2) g/dL Albumin 4.6 (3.5-5.1) g/dL Lipase 94 (23-300) U/L Urine Color Yellow (Yellow) Urine Appearance Clear (Clear) Urine pH 5.5 (5.0-9.0) Ur Specific [place] 1.019 (1.001-1.035) Urine Protein Negative (Negative) mg/dL Urine Glucose (UA) Negative (Negative) mg/dL Urine Ketones Negative (Negative) mg/dL Ur Blood (Man) 1+ H (Negative) Urine Nitrate Negative (Negative) Urine Bilirubin Negative (Negative) Urine Urobilinogen 0.2 (<2.0) mg/dL Leukocyte Esterase Rfl Negative (Negative) JANNA/UL Urine RBC 6-10 H (0-2) /hpf Urine WBC 0-5 (0-3) /hpf Ur Squamous Epith Cells None seen (Few) /hpf Urine Bacteria None seen /hpf Urine Casts 0-2 Discharge Plan Discharge Clinical Impression: Flank pain Hematuria Qualifiers: Hematuria type: asymptomatic microscopic Qualified Code(s): R31.21 - Asymptomatic microscopic hematuria Patient Disposition: Home, Self-Care Condition: Stable Instructions: Antibiotic Form, Hematuria (ED), Flank Pain (ED), Lower Back Exercises (ED) Additional Instructions: You were evaluated in the emergency department for flank pain. Your found have a small amount of blood in your urine but no kidney stone was identified on the CT scan. Your blood work is otherwise without acute findings. Please follow-up with your urologist regarding the blood in your urine. Your pain is likely secondary to muscular strain. Please take muscle relaxers, Tylenol and use the lidocaine patches as directed. Follow-up with your PCP. Return to the emergency department if you develop new or worsening symptoms. Prescriptions: New acetaminophen 500 mg capsule 1,000 mg PO Q6H PRN (Reason: pain) Qty: 20 0RF cyclobenzaprine 10 mg tablet 10 mg PO TID PRN (Reason: muscle spasm) Qty: 14 0RF lidocaine 5 % adhesive patch,medicated 1 patch topical DAILY Qty: 15 0RF Rx Instructions: leave on most painful area for up to 12 hrs. do not use more than 1 patch in a 24-hour period. No Action amlodipine 5 mg tablet 5 mg PO DAILY Qty: 90 2RF fluticasone propion-salmeterol [Advair Diskus] 250-50 mcg/dose blister with device See Rx Instructions .ROUTE .COMPLEX Rx Instructions: INHALE 1 PUFF BY MOUTH TWICE DAILY albuterol sulfate 90 mcg/actuation HFA aerosol inhaler 1 inh inhalation Q4H PRN (Reason: shortness of breath or wheezing) Qty: 6.7 0RF omeprazole 40 mg capsule,delayed release(DR/EC) 40 mg PO .daily Qty: 30 11RF Follow-up/Referrals: Amadeo Monae MD [Primary Care Provider] -
[2024-02-21] MEDS: HYDROcodone/acetaminophen (*CRX) 5-325 MG TABLET 1 TAB PO (16:20)
[2024-02-21 16:21] VITALS: BP 162/104; PULSE 80; RESP 18; O2SAT 97
[2024-02-21 17:06] LABS: Basophils Percent Auto 0.5 % (0.2-1.2); Eosinophils Absolute Auto 0.2 K/mm3 (0-0.3); Eosinophils Percent Auto 2.5 % (0-4.4); Hematocrit 40.1 % (42.0-52.0); Hemoglobin 12.6 g/dL (14.0-18.0); Immature Granulocyte Absolute 0.02 K/mm3 (0.00-0.031); Immature Granulocyte Percent A 0.3 % (0-0.5); Lymphocytes Absolute Auto 2.63 K/mm3 (0.9-3.2); Lymphocytes Percent Auto 34.3 % (18.3-44.2); Mean Corpuscular HGB Conc 31.4 g/dl (32-36); Mean Corpuscular Hemoglobin 25.8 pg (26-34); Mean Platelet Volume 11.2 fl (7.4-10.4); Monocytes Absolute Auto 0.6 K/mm3 (0.1-0.6); Monocytes Percent Auto 7.8 % (2.6-8.5); Neutrophils Absolute Auto 4.2 K/mm3 (1.3-6.7); Neutrophils Percent Auto 54.6 % (45.5-73.1); Platelet Count Result 234 k/mm3 (150-375); Red Blood Count 4.89 M/mm3 (4.6-6.20); Red Cell Distribution Width 16.7 % (11.5-14.5); White Blood Count 7.7 K/mm3 (4.5-10.0)
[2024-02-21 17:31] LABS: Alanine Aminotransferase 20 U/L (6-50); Albumin Level 4.6 g/dL (3.5-5.1); Alkaline Phosphatase 76 U/L (38-126); Anion Gap 7 mmol/L (4-12); Aspartate Amino Transferase 32 U/L (17-59); Bilirubin,Total 0.8 mg/dL (0.2-1.3); Blood Urea Nitrogen 16 mg/dL (9-20); Calcium 8.8 mg/dL (8.4-10.2); Carbon Dioxide 27 mmol/L (22-30); Chloride 104 mmol/L (98-107); Estimated CRCL calculation 77 ml/min; Estimated Glomerular Filt Rate > 60; Glucose 93 mg/dL (65-110); Lipase 94 U/L (23-300); Potassium 3.8 mmol/L (3.4-5.0); Sodium 138 mmol/L (137-145)
== END 2024-02-21 18:03 | disposition home or self-care (01) ==
PROVIDERS: Preventive Medicine Aerospace Medicine; Emergency Provider Physician Assistant; PCP Family Medicine
DX: R10.9 Unspecified abdominal pain (principal); D64.9 Anemia, unspecified; Z87.891 Personal history of nicotine dependence; R31.21 Asymptomatic microscopic hematuria
CPT/HCPCS: 36415; 74176; 80053; 81001; 83690; 85025; 99284; A9270